=== PATIENT | female | born 1960 | race Native Hawaiian/Other Pacific Islander ===

== ENCOUNTER 2017-01-09 09:06 | Outpatient (CLI) | payer OTHER ==
[~2017-01-09 09:06] MED LIST: ALBUTEROL0.083 % IN; HYDRTAB76 PO; MECLIZINE25 MG OR; METF500T PO; METO25TA2; METO25TA2 PO; NAPROSYN500 MG PO; PROM25TA52 PO; TAPAZOLE10 MG OR
== END 2017-01-09 19:28 | disposition home or self-care (01) ==
LOC: LABW 09:06
DX: E05.00 Thyrotoxicosis with diffuse goiter without thyrotoxic crisis or storm (principal); I10 Essential (primary) hypertension; E78.4 Other hyperlipidemia
CPT/HCPCS: 36415; 84439; 84443

== ENCOUNTER 2018-02-04 08:11 | Outpatient (CLI) | payer OTHER ==
[2018-02-04 08:43] LABS: PLATELET COUNT 221 K/uL (152-353)
[2018-02-04 08:58] LABS: POTASSIUM 4.3 mmol/L (3.6-5.2)
== END 2018-02-04 22:54 | disposition home or self-care (01) ==
LOC: LABW 08:11
PROVIDERS: Internal Medicine
DX: E11.9 Type 2 diabetes mellitus without complications (principal); E05.00 Thyrotoxicosis with diffuse goiter without thyrotoxic crisis or storm; I10 Essential (primary) hypertension; R82.99 Other abnormal findings in urine
CPT/HCPCS: 36415; 80053; 80061; 81000; 82043; 82570; 83036; 84439; 84443; 85027; 87077; 87086; 87088; 87186

== ENCOUNTER 2019-02-22 07:23 | Outpatient (CLI) | payer OTHER ==
[2019-02-22 07:53] LABS: PLATELET COUNT 293 K/uL (152-353)
[2019-02-22 09:07] LABS: POTASSIUM 4.2 mmol/L (3.6-5.2)
== END 2019-02-22 23:16 | disposition home or self-care (01) ==
LOC: LABW 07:23
PROVIDERS: Internal Medicine
DX: E11.9 Type 2 diabetes mellitus without complications (principal); E05.00 Thyrotoxicosis with diffuse goiter without thyrotoxic crisis or storm; R82.998 Other abnormal findings in urine
CPT/HCPCS: 36415; 80053; 80061; 81000; 82043; 82570; 83036; 84439; 84443; 85027; 87077; 87086; 87088; 87186

== ENCOUNTER 2019-03-07 07:12 | Outpatient (CLI) | payer OTHER | END 2019-03-07 19:29 | disposition home or self-care (01) | LOC: LAB 07:12 | DX: D50.8 Other iron deficiency anemias (principal) | CPT/HCPCS: 36415; 82272; 82607; 82728; 82747; 83540; 83550 ==

== ENCOUNTER 2019-04-20 07:09 | Outpatient (CLI) | payer OTHER ==
[2019-04-20 07:40] LABS: PLATELET COUNT 270 K/uL (152-353)
[2019-04-20 08:43] LABS: POTASSIUM 4.1 mmol/L (3.6-5.2)
== END 2019-04-20 23:23 | disposition home or self-care (01) ==
LOC: LABW 07:09
PROVIDERS: Internal Medicine
DX: E11.9 Type 2 diabetes mellitus without complications (principal); D50.8 Other iron deficiency anemias; E05.00 Thyrotoxicosis with diffuse goiter without thyrotoxic crisis or storm
CPT/HCPCS: 36415; 80053; 81000; 82043; 82570; 83036; 83540; 84439; 84443; 85027

== ENCOUNTER 2020-03-06 08:47 | Outpatient (CLI) | payer OTHER ==
[2020-03-06 10:04] LABS: PLATELET COUNT 247 K/uL (152-353)
[2020-03-06 11:02] LABS: POTASSIUM 4.3 mmol/L (3.6-5.2)
== END 2020-03-06 22:31 | disposition home or self-care (01) ==
LOC: LABW 08:47
PROVIDERS: Internal Medicine
DX: E11.9 Type 2 diabetes mellitus without complications (principal); E05.00 Thyrotoxicosis with diffuse goiter without thyrotoxic crisis or storm; R82.998 Other abnormal findings in urine
CPT/HCPCS: 36415; 80053; 80061; 81000; 82043; 82570; 83036; 84439; 84443; 85027; 87077; 87086; 87088; 87186

== ENCOUNTER → 2020-12-25 | Outpatient (CLI) | payer OTHER | LOC: LAB 19:45 | PROVIDERS: ATTEND Internal Medicine | DX: R30.9 Painful micturition, unspecified (principal) | CPT/HCPCS: 87077; 87086; 87088; 87186 ==

== ENCOUNTER 2021-01-08 09:35 | Emergency (ER) | payer OTHER ==
[~2021-01-08] VITALS: Ht 162.6 cm; Wt 58.5 kg
[2021-01-08 09:51] VITALS: TEMP 97.2
[2021-01-08 10:43] LABS: PLATELET COUNT 260 K/uL (152-353)
[2021-01-08 10:47] LABS: POTASSIUM 3.8 mmol/L (3.6-5.2)
[2021-01-08 13:39] VITALS: BP 148/56
== END 2021-01-08 13:42 | disposition home or self-care (01) ==
LOC: ED 09:35
PROVIDERS: Family Medicine
DX: I71.2 Thoracic aortic aneurysm, without rupture (principal); M48.54XA Collapsed vertebra, not elsewhere classified, thoracic region, initial encounter for fracture
CPT/HCPCS: 80053; 81000; 84484; 85027; 99283